=== PATIENT | female | born 1965 | race Caucasian/White ===

== ENCOUNTER 2017-08-03 19:21 | Emergency (ER) | payer OTHER ==
[~2017-08-03] VITALS: Ht 170.2 cm; Wt 68.0 kg
--- NOTE | 2017-08-03 20:55 | NUR ---
Dr. Marie at bedside for MSE.
[2017-08-03] MEDS ORDERED: HYDROMORPHONE 1 MG/1 ML DISP.SYRIN IM ONE (21:00)
[2017-08-03] MEDS ORDERED: ONDANSETRON 4 MG/2 ML VIAL IM ONE (21:00)
[2017-08-03] MEDS ORDERED: HYDROMORPHONE 4 MG/1 ML DISP.SYRIN ONE (21:05)
[2017-08-03] MEDS ORDERED: ONDANSETRON 4 MG/2 ML VIAL ONE (21:06)
[2017-08-03] MEDS ORDERED: CEFTRIAXONE 1 G in IV DEXTROSE 5% 50 ML IV ONE (21:15)
[2017-08-03] MEDS ORDERED: TDAP DIPH,PERTUSS,TET VAC/PF 0.5 ML DISP.SYRIN IM ONE ×2 (21:15→21:52)
[2017-08-03] MEDS ORDERED: HYDROMORPHONE 1 MG/1 ML DISP.SYRIN IV ONE (21:15)
[2017-08-03] MEDS ORDERED: VANCOMYCIN IV 1,000 MG in IV DEXTROSE 5% 250 ML IV ONE (21:15)
[2017-08-03] MEDS ORDERED: ONDANSETRON 4 MG/2 ML VIAL IV ONE (21:15)
[2017-08-03 21:46] LABS: BASOPHILS % (AUTO) 0.5 % (0.0-2.0); EOSINOPHILS # (AUTO) 0.1 K/uL (0.0-0.7); EOSINOPHILS % (AUTO) 0.8 % (0.0-7.0); HEMATOCRIT 39.5 % (31.2-41.9); HEMOGLOBIN 13.6 g/dL (10.9-14.3); LYMPHOCYTES # (AUTO) 1.7 K/uL (20.0-40.0); LYMPHOCYTES % (AUTO) 17.1 % (20.5-51.5); MEAN CORPUSCULAR HEMOGLOBIN 30.4 uug (24.7-32.8); MEAN CORPUSCULAR HGB CONC 34 g/dL (32.3-35.6); MEAN CORPUSCULAR VOLUME 88.5 fL (75.5-95.3); MONOCYTES # (AUTO) 0.6 K/uL (2.0-10.0); MONOCYTES % (AUTO) 6.3 % (0.0-11.0); NEUTROPHILS # (AUTO) 7.5 K/uL (1.8-8.9); NEUTROPHILS % (AUTO) 75.3 % (38.5-71.5); PLATELET COUNT (AUTO) 189 K/uL (179-408); RED BLOOD CELL COUNT(AUTO) 4.46 MIL/uL (3.63-4.92)
[2017-08-03 21:53] LABS: CREATININE 0.8 mg/dL (0.6-1.3); POTASSIUM 3.4 mmol/L (3.5-5.1)
[2017-08-03] MEDS ORDERED: CEFTRIAXONE 1 G VIAL ONE (21:53)
[2017-08-03] MEDS ORDERED: VANCOMYCIN 1000 MG VIAL ONE (21:55)
[2017-08-03] MEDS ORDERED: VANCOMYCIN IV 200 ML ONE (21:57)
[2017-08-03 22:01] LABS: BILIRUBIN,DIRECT 0.1 mg/dL (0.0-0.2); BILIRUBIN,TOTAL 0.6 mg/dL (0.2-1.0); TOTAL PROTEIN, SERUM 7.3 g/dL (6.4-8.2)
[2017-08-03] MEDS ORDERED: IV NORMAL SALINE 100 ML ONE (22:17)
[2017-08-03] MEDS ORDERED: NORMAL SALINE FLUSH 10 ML DISP.SYRIN ONE (22:17)
[2017-08-03] MEDS ORDERED: IOHEXOL 300MG/ML 100 ML INFUS..BTL ONE (22:17)
[2017-08-03] MEDS ORDERED: IV NORMAL SALINE 1000 ML BAG IV ONE (22:30)
--- NOTE | 2017-08-03 22:50 | NUR ---
Patient out of ER for CT.
--- NOTE | 2017-08-03 23:08 | NUR ---
Patient back to ER from CT.
[2017-08-03] MEDS ORDERED: LET TOPICAL SOLUTION 8 ML UDC TP ONE (23:30)
[2017-08-03] MEDS ORDERED: LET TOPICAL SOLUTION 8 ML UDC ONE (23:57)
[2017-08-04] MEDS ORDERED: NEOMY/BACITRA/POLYMYXIN B OINT UD PACKET TP ONE ×2 (01:00→01:31)
[2017-08-04] MEDS ORDERED: MUPIROCIN 2% OINT 22 GM TUBE ONE (02:25)
[2017-08-04] MEDS ORDERED: MISCELLANEOUS MED XX ONE (02:30)
--- NOTE | 2017-08-04 02:45 | NUR ---
Nathalia badillo in ED - 08/04/17 at 0645 by VIOLETA Patient reports pain on left thigh at 8, worsens on movement.
--- NOTE | 2017-08-04 02:45 | NUR ---
Patient reports pain on right thigh still painful about 8, worsens on movement. MD notified.
[2017-08-04] MEDS ORDERED: KETOROLAC TROMETHAMINE 15 MG INJ IVP ONE (03:00)
[2017-08-04] MEDS ORDERED: MORPHINE SULFATE 4 MG/1 ML DISP.SYRIN IV ONE (03:00)
[2017-08-04] MEDS ORDERED: ONDANSETRON 4 MG/2 ML VIAL IV ONE (03:00)
[2017-08-04] MEDS ORDERED: ONDANSETRON 4 MG/2 ML VIAL ONE (03:02)
[2017-08-04] MEDS ORDERED: MORPHINE SULFATE 4 MG/1 ML DISP.SYRIN ONE (03:02)
[2017-08-04] MEDS ORDERED: KETOROLAC TROMETHAMINE 15 MG INJ ONE (03:03)
--- NOTE | 2017-08-04 03:40 | NUR ---
Patient reports pain much better now, 10/01. MD notified.
--- NOTE | 2017-08-04 05:15 | NUR ---
Patient discharged to home in stable conditon. Written and verbal after care instructions given. Patient verbalizes understanding of instructions. Patient ambulated out of ER with crutches, gait training provided, all belongings taken, VSS, no acute signs of distress, patient called taxi cab to home.
[2017-08-04 06:54] VITALS: BP 130/87
== END 2017-08-04 05:15 | disposition home or self-care (01) ==
LOC: ER 19:21
DX: S71.132A Puncture wound without foreign body, left thigh, initial encounter (principal); W26.8XXA Contact with other sharp object(s), not elsewhere classified, initial encounter; Y93.89 Activity, other specified; Y92.89 Other specified places as the place of occurrence of the external cause; Y99.8 Other external cause status
CPT/HCPCS: 36415; 73551; 85025; 85730; 90715; A4663; J0696; J1170; J1885; J2270; J2405; J3370; J3490; J7030; J7060; Q9967

== ENCOUNTER 2022-05-25 19:18 | Emergency (ER) | END 2022-05-25 20:39 | disposition home or self-care (01) | DX: J20.8 Acute bronchitis due to other specified organisms (principal); E55.9 Vitamin D deficiency, unspecified; F17.210 Nicotine dependence, cigarettes, uncomplicated ==